=== PATIENT | male | born 1990 | race Caucasian/White ===

== ENCOUNTER 2018-06-07 13:37 | Observation (INO) ==
[2018-06-07] MEDS ORDERED: Aspirin 325 MG Tablet PO ONE (13:41)
[2018-06-07] MEDS ORDERED: Sod Chloride 0.9% Inj 1,000 ML IV.SIG ONE ×2 (13:43→15:35)
--- NOTE | 2018-06-07 14:19 | ED ---
HPI General Chief Complaint: Syncope Stated Complaint: Cardiac Time Seen by Provider: 06/07/18 13:40 Source: patient and family Mode of arrival: wheelchair Limitations: altered mental status History of Present Illness HPI narrative: 27-year-old male the presents to the ED for evaluation of syncope and chest pain. Patient himself is not able to provide much information. Apparently patient was working today out of [employer] and he started staying to his coworkers that he was feeling "funny ". Patient was able to sit down and will he was sitting he started apparently worsening. Per report I was given by family in [employer] supervisor patient started getting more unresponsive and complaining of chest pain and pressure in his chest and then he became more quiet and he would interact with anybody. Patient apparently had a syncopal episode that was witnessed. Lasted less than a couple seconds. Patient not hit his head or lose consciousness. No recent travel. Per mother patient has been under a lot of stress recently at work as well as in home life. Apparently patient had a similar episode about a year and a half ago where his blood pressure went up and he had some similar symptoms. He has not taken anything for this however. He takes no medications. No allergies. No other medical issues. Patient cannot really give me a number for the chest pain and is able to point to where he hurts. He is not able to give much information otherwise. Unclear if any history of smoking or drug use. Related Data Home Medications Medication Instructions Recorded Confirmed dextroamphetamine-amphetamine 20 mg PO BID 06/07/18 06/07/18 [Adderall] Allergies Allergy/AdvReac Type Severity Reaction Status Date / Time No Known Allergies Allergy Verified 06/07/18 13:43 Review of Systems ROS: all other systems reviewed are negative [facility] Medical History Medical History ADHD (Acute) Social History Social History Substance History: No History of Abuse Second Hand Smoke Exposure: No Smoking Status: Never smoker How Often Do You Have a Drink Containing Alcohol: 2 to 4 times a month Recent Travel in [facility] [[email or web address] within the Last 8 Weeks: No Recent Out of Country Travel within the Last 8 Weeks: No Exam Narrative Exam Narrative: GENERAL: Very anxious but well-appearing otherwise. SKIN: Focused skin assessment warm/dry. HEAD: Atraumatic. Normocephalic. EYES: Pupils equal and round 4 mms reactive to light and accommodation.. No scleral icterus. No injection or drainage. ENT: No nasal bleeding or discharge. Mucous membranes pink and moist. Tongue is midline. No uvula deviation. NECK: Trachea midline. No JVD. CARDIOVASCULAR: Regular rate and rhythm. No murmur appreciated. RESPIRATORY: No accessory muscle use. Clear to auscultation. Breath sounds equal bilaterally. GASTROINTESTINAL: Abdomen soft, non-tender, nondistended. Hepatic and splenic margins not palpable. MUSCULOSKELETAL: No obvious deformities. No clubbing. No cyanosis. No edema. Full range of motion of the upper and lower extremities bilaterally. 2+ pulses bilaterally. NEUROLOGICAL: Awake and alert. No obvious cranial nerve deficits. Motor grossly within normal limits. Normal speech. PSYCHIATRIC: Appropriate mood and affect; insight and judgment normal. Course Initial Documented Vital Signs Pulse Rate 88 06/07/18 13:43 Respiratory Rate 22 06/07/18 13:43 Blood Pressure 155/94 H 06/07/18 13:43 Pulse Oximetry 100 06/07/18 13:43 Last Documented Vital Signs Temperature 98.7 F 06/07/18 14:05 Pulse Rate 76 06/07/18 14:05 Respiratory Rate 18 06/07/18 14:05 Blood Pressure 130/76 06/07/18 14:05 Pulse Oximetry 100 06/07/18 14:05 Medical Decision Making [facility] Narrative Medical decision making narrative: 27-year-old male the presents to the ED for evaluation of chest pain and shortness of breath. Patient was properly examined and was found to have signs and symptoms consistent with appears to be possible ACS versus anxiety. Patient cannot really give me much history. Labs and imaging order. Patient was given Ativan, nitroglycerin and aspirin. Patient was reassessed and able to talk now and feels more improved. She has been seems to be going away. Patient apparently is doing a new diet and is taking multiple supplements. He is also been working a lot and been under a lot of stress per family and patient himself. He is [employer] unit apparently stopped working last night and he has been in a hot house for about 24 hours. He also states that he had a light breakfast today. Labs and imaging were ordered. Labs and imaging were essentially unremarkable for acute disease. Patient does have slight hypokalemia and CK elevation. Possibly from the hydration. Patient was given a bolus of fluid and given potassium supplements. Patient overall feeling better. I do suspect that this is more benign but because patient did had a syncopal episode that preceded with chest pain I cannot completely rule out cardiac. I do not believe the patient has ACS but I do believe the patient could have a dysrhythmia that we might not have found as patient is currently taking multiple [id number] supplements to help with weight loss. Case discussed with Dr. Goldsmith who agrees to admission to his service. My attending Dr. Yañez was made aware of findings and agrees with plan. Differential Diagnosis Differential Diagnosis: ACS versus anxiety versus panic attack versus vasovagal episode versus a typical chest pain Medical Records Medical records reviewed: Yes I reviewed the patient's medical records. Lab Data Lab results reviewed: Yes I reviewed the patient's lab results. Lab results narrative: troponin negative CKMB in the 500s Lipase WNL Result diagrams: 06/07/18 13:55 06/07/18 13:55 Lab Results 06/07/18 06/07/18 06/07/18 Range/Units 13:55 13:55 13:55 WBC 8.2 (4.0-11.0) th/mm3 RBC 5.07 (4.50-5.90) mil/mm3 Hgb 15.3 (13.0-17.0) gm/dL Hct 45.3 (39.0-51.0) % MCV 89.4 (80.0-100.0) fL MCH 30.2 (27.0-34.0) pg MCHC 33.8 (32.0-36.0) % RDW 13.2 (11.6-17.2) % Plt Count 224 (150-450) th/mm3 MPV 7.9 (7.0-11.0) fL Neut % (Auto) 57.1 (16.0-70.0) % Lymph % (Auto) 37.0 (9.0-44.0) % [place] % (Auto) 5.1 (0.0-8.0) % Eos % (Auto) 0.3 (0.0-4.0) % Baso % (Auto) 0.5 (0.0-2.0) % Neut # (Auto) 4.7 (1.8-7.7) th/mm3 Lymph # (Auto) 3.0 (1.0-4.8) th/mm3 [place] # (Auto) 0.4 (0.0-0.9) th/mm3 Eos # (Auto) 0.0 (0.0-0.4) th/mm3 Baso # (Auto) 0.0 (0.0-0.2) th/mm3 WBC Differential . Differential Comment Auto diff final PT 10.7 (9.8-11.6) sec INR 1.1 Ratio APTT 24.5 (24.3-30.1) sec D-Dimer Quant (PE/DVT) (0.00-0.50) mg/L FEU Sodium 138 (136-145) meq/L Potassium 3.1 L (3.5-5.1) meq/L Chloride 104 (98-107) meq/L Carbon Dioxide 22.2 (21.0-32.0) meq/L Anion Gap 12 (5-15) meq/L BUN 20 H (7-18) mg/dL Creatinine 1.19 (0.60-1.30) mg/dL Estimated GFR 73 L (>89) mL/min Random Glucose 96 (74-106) mg/dL Calcium 9.2 (8.5-10.1) mg/dL Magnesium 1.9 (1.5-2.5) mg/dL Total Bilirubin 0.5 (0.2-1.0) mg/dL AST 29 (15-37) U/L ALT 43 (12-78) U/L Alkaline Phosphatase 77 (45-117) U/L Total Creatine Kinase 572 H (39-308) U/L CK-MB (CK-2) 3.9 H (0.5-3.6) ng/mL CK-MB (CK-2) % 0.7 (0.0-4.0) % Troponin I Less than 0.02 L (0.02-0.05) ng/mL Total Protein 8.1 (6.4-8.2) g/dL Albumin 4.3 (3.4-5.0) g/dL Lipase 95 (73-393) U/L 06/07/18 Range/Units 13:55 WBC (4.0-11.0) th/mm3 RBC (4.50-5.90) mil/mm3 Hgb (13.0-17.0) gm/dL Hct (39.0-51.0) % MCV (80.0-100.0) fL MCH (27.0-34.0) pg MCHC (32.0-36.0) % RDW (11.6-17.2) % Plt Count (150-450) th/mm3 MPV (7.0-11.0) fL Neut % (Auto) (16.0-70.0) % Lymph % (Auto) (9.0-44.0) % [place] % (Auto) (0.0-8.0) % Eos % (Auto) (0.0-4.0) % Baso % (Auto) (0.0-2.0) % Neut # (Auto) (1.8-7.7) th/mm3 Lymph # (Auto) (1.0-4.8) th/mm3 [place] # (Auto) (0.0-0.9) th/mm3 Eos # (Auto) (0.0-0.4) th/mm3 Baso # (Auto) (0.0-0.2) th/mm3 WBC Differential Differential Comment PT (9.8-11.6) sec INR Ratio APTT (24.3-30.1) sec D-Dimer Quant (PE/DVT) Less than 0.19 (0.00-0.50) mg/L FEU Sodium (136-145) meq/L Potassium (3.5-5.1) meq/L Chloride (98-107) meq/L Carbon Dioxide (21.0-32.0) meq/L Anion Gap (5-15) meq/L BUN (7-18) mg/dL Creatinine (0.60-1.30) mg/dL Estimated GFR (>89) mL/min Random Glucose (74-106) mg/dL Calcium (8.5-10.1) mg/dL Magnesium (1.5-2.5) mg/dL Total Bilirubin (0.2-1.0) mg/dL AST (15-37) U/L ALT (12-78) U/L Alkaline Phosphatase (45-117) U/L Total Creatine Kinase (39-308) U/L CK-MB (CK-2) (0.5-3.6) ng/mL CK-MB (CK-2) % (0.0-4.0) % Troponin I (0.02-0.05) ng/mL Total Protein (6.4-8.2) g/dL Albumin (3.4-5.0) g/dL Lipase (73-393) U/L Imaging Data Attestation: I personally reviewed and interpreted this imaging study as follows : Radiologist's impression: Chest X-Ray 06/07/18 13:41 CONCLUSION: Negative for an acute process Head CT 06/07/18 13:42 CONCLUSION: 1. Negative noncontrast head CT ECG Data Attestation: I personally reviewed and interpreted this ECG as follows: Interpretation: EKG shows sinus rhythm with no sign of acute ischemia or arrhythmia read by me and attending. No ST elevations. Discharge Plan Physicians Team ED Provider: Samia Aldrich ED Midlevel Provider: Stanton Leroy Primary Care Provider: UNKNOWN, Rxs /Orders / Referrals /Forms Prescriptions: No Action dextroamphetamine-amphetamine [Adderall] 20 mg Tablet 20 mg PO BID RF: 0 Discharge Interventions Interventions: Vital Signs Last Done: 06/07/18 14:05 Status ED Status: With Doctor
[2018-06-07 14:24] LABS: Baso % (Auto) 0.5 % (0.0-2.0); Eos % (Auto) 0.3 % (0.0-4.0); Hematocrit 45.3 % (39.0-51.0); Hemoglobin 15.3 gm/dL (13.0-17.0); Mean Corpuscular HGB Conc 33.8 % (32.0-36.0); Mean Corpuscular Hemoglobin 30.2 pg (27.0-34.0); Mean Corpuscular Volume 89.4 fL (80.0-100.0); Mean Platelet Volume 7.9 fL (7.0-11.0); Mono # (Auto) 0.4 th/mm3 (0.0-0.9); Mono % (Auto) 5.1 % (0.0-8.0); Neut # (Auto) 4.7 th/mm3 (1.8-7.7); Neut % (Auto) 57.1 % (16.0-70.0); Platelet Count 224 th/mm3 (150-450); Red Blood Count 5.07 mil/mm3 (4.50-5.90); Red Cell Distribution Width 13.2 % (11.6-17.2); White Blood Count 8.2 th/mm3 (4.0-11.0)
--- NOTE | 2018-06-07 14:30 | XR ---
EXAM DATE: 06/07/2018 2:28 PM EDT AGE/SEX: 27 years / Male INDICATIONS: Chest pain. Patient complains of shortness of breath and tightness in chest. CLINICAL DATA: This is the patient's initial encounter. Patient reports that signs and symptoms have been present for 1 day and indicates a pain score of 10/10. MEDICAL/SURGICAL HISTORY: None. None. COMPARISON: No prior exams available for comparison. FINDINGS: A single AP view of the chest demonstrates the lungs to be symmetrically aerated without evidence of mass, infiltrate or effusion. The cardiomediastinal contours are unremarkable. Osseous structures a re intact. CONCLUSION: Negative for an acute process Electronically signed by: Delonte Zamora MD 06/07/2018 2:29 PM EDT
[2018-06-07 14:38] LABS: Activated Partial Thrombo Time 24.5 sec (24.3-30.1); INR 1.1 Ratio; Prothrombin Time 10.7 sec (9.8-11.6)
[2018-06-07 14:48] LABS: Alanine Aminotransferase 43 U/L (12-78); Albumin 4.3 g/dL (3.4-5.0); Anion Gap 12 meq/L (5-15); Aspartate Aminotransferase 29 U/L (15-37); Blood Urea Nitrogen 20 mg/dL (7-18); Calcium 9.2 mg/dL (8.5-10.1); Carbon Dioxide 22.2 meq/L (21.0-32.0); Chloride 104 meq/L (98-107); Glomerular Filtration Rate 73 mL/min (>89); Glucose,Random 96 mg/dL (74-106); Lipase 95 U/L (73-393); Magnesium 1.9 mg/dL (1.5-2.5); Potassium 3.1 meq/L (3.5-5.1); Sodium 138 meq/L (136-145)
[2018-06-07 14:52] LABS: Alkaline Phosphatase 77 U/L (45-117); Creatine Kinase 572 U/L (39-308); Total Protein 8.1 g/dL (6.4-8.2)
--- NOTE | 2018-06-07 14:59 | CT ---
EXAM DATE: 06/07/2018 2:56 PM EDT AGE/SEX: 27 years / Male INDICATIONS: Syncopal episode today. Chest pain and tightness, general malaise. CLINICAL DATA: This is the patient's initial encounter. Patient reports that signs and symptoms have been present for 1 day and indicates a pain score of 3/10. MEDICAL/SURGICAL HISTORY: None. None. RADIATION DOSE: 46.58 CTDI (mGy) COMPARISON: No prior exams available for comparison. TECHNIQUE: CT of the head without contrast. Using automated exposure control and adjustment of the mA and/or kV according to patient size, radiation dose was kept as low as reasonably achievable to ob tain optimal diagnostic quality images. DICOM format image data is available electronically for revi ew and comparison. FINDINGS: Cerebrum: The ventricles are normal for age. No evidence of midline shift, mass lesion, hemorrhage or acute infarction. No extraaxial fluid collections are seen. Posterior Fossa: The cerebellum and brainstem are intact. The 4th ventricle is midline. The cerebe llopontine angle is unremarkable. Extracranial: The visualized portion of the orbits is intact. Skull: The calvaria is intact. No evidence of skull fracture. CONCLUSION: 1. Negative noncontrast head CT Electronically signed by: Rafita Menendez MD 06/07/2018 2:57 PM EDT
[2018-06-07 15:05] LABS: CKMB Percent 0.7 % (0.0-4.0); Creatine Kinase MB 3.9 ng/mL (0.5-3.6)
--- NOTE | 2018-06-07 15:44 | ECG ---
Date Performed: 06/07/2018 Time Performed: 13:51:18 PTAGE: 27 years EKG: Sinus rhythm WITH SINUS ARRHYTHMIA NORMAL ECG NO PREVIOUS TRACING DOCTOR: Elizabteh Pink Interpretating Date/Time 06/07/2018 15:43:27
--- NOTE | 2018-06-07 17:07 | US ---
EXAM DATE: 06/07/2018 5:02 PM EDT AGE/SEX: 27 years / Male INDICATIONS: Syncope. Also complains of chest pain and tightness. CLINICAL DATA: This is the patient's initial encounter. Patient reports that signs and symptoms have been present for 1 day and indicates a pain score of 0/10. MEDICAL/SURGICAL HISTORY: . Syncope. ADHD. None. COMPARISON: No prior exams available for comparison. VELOCITY PARAMETERS: ICA/CCA Ratio: Right 0.7 , Left 0.9 ICA: Right 62.2 cm/sec, Left 67.7 cm/sec CCA: Right 85.3 cm/sec, Left 78.5 cm/sec ECA: Right 85.3 cm/sec, Left 101.8 cm/sec Vertebral: Right 37.4 cm/sec antegrade, Left 31.8 cm/sec antegrade FINDINGS: Right Carotid: No significant plaque is visualized.The waveforms are within normal limits. Left Carotid: No significant plaque is visualized. The waveforms are within normal limits. Other: None. CONCLUSION: Negative exam with no evidence of stenosis. Electronically signed by: Rafita Menendez MD 06/07/2018 5:06 PM EDT
[2018-06-07 17:17] LABS: Creatine Kinase 452 U/L (39-308)
[2018-06-07] MEDS: Sod Chloride 0.9% Inj 1,000 ML IV.CONT SCH (17:27)
[2018-06-07 17:29] LABS: CKMB Percent 0.7 % (0.0-4.0)
--- NOTE | 2018-06-07 17:47 | P.HP ---
History of Present Illness Primary Care Physician: UNKNOWN Chief Complaint: CHEST PAIN, SYNCOPE History of Present Illness: This is a pleasant 27-year-old white male with no significant past medical history other than ADHD for which he takes Adderall. Presented to the emergency room for syncopal episode and chest pain. According to the patient, he did not sleep very much last night as his air conditioning went out. The last couple nights he has only been able to get maybe 3-4 hours of sleep. This morning he woke up, ate some breakfast and exercised for about 45 minutes. He went to work at his job at the [employer] facility. Sometime around 12 noon, he started feeling "funny". Started to feel a squeezing sensation to the midsternum, he had some difficulty taking a deep breath. There was no radiation , no nausea no vomiting. He felt a little groggy and dazed and was having difficulty focusing on his job duties. 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 He continued to feel poorly but wanted to finish his shift. He started to feel shaky, felt heart was racing and he could not control his hands. He was walking out of the room and trying to use a guerrero when he passed out. His blood pressure was checked at that time it was 137/98. Episode only lasted a few seconds. There was no loss of bowel or bladder, no tongue biting. According to his mother, he had a similar episode last year where his blood pressure became elevated and he had chest discomfort. His mother endorses that he is under a lot of stress as he is raising 3 children as a single father and recently bought a home. Patient denies any illegal drug use. Indicates he has lost intentionally approximately 50 pounds in the last 6 months and takes protein powder and B vitamins and works out daily. Denies any illegal substances. He has been on Adderall for almost a year and sometimes he takes it daily instead of twice daily as it is prescribed. He denies any history of coronary artery disease, no dysrhythmias. No family history of coronary artery disease. Patient was evaluated in the emergency room, laboratory workup was completed. Troponin was negative. CPK was noted slightly elevated at 572. He was noted hypokalemic. EKG did not reveal any acute ST segment elevation. He was given nitro, Ativan and aspirin. At this time, he is resting comfortably. Denies any chest pain. No anxiety. Patient is admitted for further evaluation and treatment. - Diagnosis (1) Syncope (2) Chest pain (3) Rhabdomyolysis (4) Hypokalemia (5) ADHD Review of Systems All other systems reviewed negative except as stated in HPI PMFSH - History History Provided By: Patient, Family Member - Medical History Medical History: Medical History (Last Reviewed 06/07/18 @ 18:04 by GIANNA Dumont) ADHD - Family History Family History: Family History (Last Updated 06/07/18 @ 18:05 by GIANNA Dumont) Grandparent Atrial fibrillation - Tobacco History Second Hand Smoke Exposure: No Smoking Status: Never smoker - Alcohol History How Often Do You Have a Drink Containing Alcohol: 2 to 4 times a month - Substance Use History Substance History: No History of Abuse - Travel History Recent Travel in the [place] Within the Last 8 Weeks: No Recent Travel Out of the Country Within the Last 8 Weeks: No - Immunization History Tetanus Immunization: <5 Years Hx Influenza Vaccine This Season: No Medications and Allergies Active Medications: Active Medications Sodium Chloride (Ns Inj) 1,000 mls @ 100 mls/hr IV.CONT .Q10H RAYMUNDO Last Admin: 06/07/18 17:27 Dose: 100 mls/hr Sodium Chloride (Ns Flush) 2 ml IV.FLUSH UNSCH PRN PRN Reason: FLUSH AFTER USING IV ACCESS Allergies Allergy/AdvReac Type Severity Reaction Status Date / Time No Known Allergies Allergy Verified 06/07/18 13:43 Home Medications Medication Instructions Recorded Confirmed Type dextroamphetamine-amphetamine 20 mg PO BID 06/07/18 06/07/18 History [Adderall] Exam Vital signs: Vital Signs 06/07/18 13:43 06/07/18 13:46 06/07/18 14:05 Temperature 98.7 F Pulse Rate 88 76 Respiratory Rate 22 18 Blood Pressure 155/94 H 130/76 Pulse Oximetry 100 100 100 06/07/18 17:28 Temperature Pulse Rate 69 Respiratory Rate 19 Blood Pressure 142/81 H Pulse Oximetry 100 Intake & Output 06/06/18 06/07/18 06/07/18 18:59 06:59 18:59 Weight 79.379 kg Narrative: GENERAL: Well-nourished, well-developed patient in no apparent distress. SKIN: Warm and dry. HEAD: Atraumatic. Normocephalic. EYES: Pupils equal and round. No scleral icterus. No injection or drainage. ENT: No nasal bleeding or discharge. Mucous membranes pink and moist. NECK: Trachea midline. No JVD. CARDIOVASCULAR: Regular rate and rhythm. RESPIRATORY: No accessory muscle use. Clear to auscultation. Breath sounds equal bilaterally. GASTROINTESTINAL: Abdomen soft, non-tender, nondistended. Hepatic and splenic margins not palpable. MUSCULOSKELETAL: Extremities without clubbing, cyanosis, or edema. No obvious deformities. NEUROLOGICAL: Awake and alert. No obvious cranial nerve deficits. Motor grossly within normal limits. Five out of 5 muscle strength in the arms and legs. Normal speech. PSYCHIATRIC: Appropriate mood and affect; insight and judgment normal. Results - Labs CBC & Chem 7: 06/07/18 13:55 06/07/18 13:55 Labs: Laboratory Results - last 24 hr 06/07/18 06/07/18 06/07/18 13:55 13:55 13:55 WBC 8.2 RBC 5.07 Hgb 15.3 Hct 45.3 MCV 89.4 MCH 30.2 MCHC 33.8 RDW 13.2 Plt Count 224 MPV 7.9 Neut % (Auto) 57.1 Lymph % (Auto) 37.0 [place] % (Auto) 5.1 Eos % (Auto) 0.3 Baso % (Auto) 0.5 Neut # (Auto) 4.7 Lymph # (Auto) 3.0 [place] # (Auto) 0.4 Eos # (Auto) 0.0 Baso # (Auto) 0.0 WBC Differential . Differential Comment Auto diff final PT 10.7 INR 1.1 APTT 24.5 D-Dimer Quant (PE/DVT) Sodium 138 Potassium 3.1 L Chloride 104 Carbon Dioxide 22.2 Anion Gap 12 BUN 20 H Creatinine 1.19 Estimated GFR 73 L Random Glucose 96 Calcium 9.2 Magnesium 1.9 Total Bilirubin 0.5 AST 29 ALT 43 Alkaline Phosphatase 77 Total Creatine Kinase 572 H CK-MB (CK-2) 3.9 H CK-MB (CK-2) % 0.7 Troponin I Less than 0.02 L Total Protein 8.1 Albumin 4.3 Lipase 95 06/07/18 06/07/18 13:55 16:36 WBC RBC Hgb Hct MCV MCH MCHC RDW Plt Count MPV Neut % (Auto) Lymph % (Auto) [place] % (Auto) Eos % (Auto) Baso % (Auto) Neut # (Auto) Lymph # (Auto) [place] # (Auto) Eos # (Auto) Baso # (Auto) WBC Differential Differential Comment PT INR APTT D-Dimer Quant (PE/DVT) Less than 0.19 Sodium Potassium Chloride Carbon Dioxide Anion Gap BUN Creatinine Estimated GFR Random Glucose Calcium Magnesium Total Bilirubin AST ALT Alkaline Phosphatase Total Creatine Kinase 452 H CK-MB (CK-2) 3.0 CK-MB (CK-2) % 0.7 Troponin I Less than 0.02 L Total Protein Albumin Lipase - Imaging Impressions Carotid Doppler Study 06/07/18 00:00 CONCLUSION: Negative exam with no evidence of stenosis. Chest X-Ray 06/07/18 13:41 CONCLUSION: Negative for an acute process Head CT 06/07/18 13:42 CONCLUSION: 1. Negative noncontrast head CT Caprini VTE Risk Assessment Caprini VTE Risk Assessment: No/Low Risk (score <= 1) Caprini Risk Assessment Model: Point Value = 1 Point Value = 2 Point Value = 3 Point Value = 5 Age 41-60 Minor surgery BMI > 25 kg/m2 Swollen legs Varicose veins or History of unexplained or recurrent spontaneous Oral contraceptives or hormone replacement Sepsis (< 1 month) Serious lung disease, including pneumonia (< 1 month) Abnormal pulmonary function Acute myocardial infarction Congestive heart failure (< 1 month) History of inflammatory bowel disease Medical patient at bed rest Age 61-74 Arthroscopic surgery Major open surgery (> 45 min) Laparoscopic surgery (> 45 min) Malignancy Confined to bed (> 72 hours) Immobilizing plaster cast Central venous access Age >= 75 History of VTE Family history of VTE Factor V Leiden Prothrombin [id number] Lupus anticoagulant Anticardiolipin antibodies Elevated serum homocysteine Heparin-induced thrombocytopenia Other congenital or acquired thrombophilia Stroke (< 1 month) Elective arthroplasty Hip, pelvis, or leg fracture Acute spinal cord injury (< 1 month) Prophylaxis Regimen: Total Risk Factor Score Risk Level Prophylaxis Regimen 0-1 Low Early ambulation 2 Moderate Order ONE of the following: *Sequential Compression Device (SCD) *Heparin 5000 units SQ BID 3-4 Higher Order ONE of the following medications: *Heparin 5000 units SQ TID *Enoxaparin/Lovenox 40 mg SQ daily (WT < 150 kg, CrCl > 30 mL/min) *Enoxaparin/Lovenox 30 mg SQ daily (WT < 150 kg, CrCl > 10-29 mL/min) *Enoxaparin/Lovenox 30 mg SQ BID (WT < 150 kg, CrCl > 30 mL/min) AND/OR *Sequential Compression Device (SCD) 5 or more Highest Order ONE of the following medications: *Heparin 5000 units SQ TID (Preferred with Epidurals) *Enoxaparin/Lovenox 40 mg SQ daily (WT < 150 kg, CrCl > 30 mL/min) *Enoxaparin/Lovenox 30 mg SQ daily (WT < 150 kg, CrCl > 10-29 mL/min) *Enoxaparin/Lovenox 30 mg SQ BID (WT < 150 kg, CrCl > 30 mL/min) AND *Sequential Compression Device (SCD) Assessment and Plan - Assessment (1) Syncope Code(s): R55 - Syncope and collapse Status: Acute (2) Chest pain Code(s): R07.9 - Chest pain, unspecified Status: Acute (3) Rhabdomyolysis Code(s): M62.82 - Rhabdomyolysis Status: Acute (4) Hypokalemia Code(s): E87.6 - Hypokalemia Status: Acute (5) ADHD Code(s): F90.9 - Attention-deficit hyperactivity disorder, unspecified type Status: Chronic - Plan 27-year-old presented to the emergency room after having a witnessed syncopal episode, reported chest pain, heart racing. Initial workup done in the emergency room negative for ACS. CPK noted elevated. No history of coronary artery disease Chest pain, atypical possibly secondary to anxiety -We will check another set of troponin -Continue with aspirin 325 mg p.o. daily Syncopal episode -We will check 2D echo and carotid ultrasound -Neurochecks every 4 -Continuous cardiac telemetry monitoring Mild rhabdomyolysis-Had been recently working out, possibly dehydrated and overheated as his AC stopped working. -Normal saline at 100 hour -Monitor renal function -Repeat BMP and CPK in the morning Hypokalemia -Replace potassium -BMP in the morning History of ADHD -We will hold Adderall at this time Home medications reviewed, initiated as indicated Plan of care discussed with patient and mother, and RN. Further management of the patient will be dependent on the hospital course (3) Rhabdomyolysis Qualifiers: Rhabdomyolysis type: non-traumatic Qualified Code(s): M62.82 - Rhabdomyolysis (5) ADHD Qualifiers: Attention deficit-hyperactivity disorder type: unspecified Qualified Code(s) : F90.9 - Attention-deficit hyperactivity disorder, unspecified type
[2018-06-07] MEDS ORDERED: Acetaminophen 325 MG Tablet PO PRN (18:27)
[2018-06-07 20:47] VITALS: RESP 16
[2018-06-07 23:42] LABS: Creatine Kinase 414 U/L (39-308)
[2018-06-07 23:55] LABS: CKMB Percent 0.7 % (0.0-4.0)
[2018-06-08] MEDS: Sod Chloride 0.9% Inj 1,000 ML IV.CONT SCH (06:11)
[2018-06-08 08:05] LABS: Baso % (Auto) 0.8 % (0.0-2.0); Eos # (Auto) 0.1 th/mm3 (0.0-0.4); Hematocrit 41.9 % (39.0-51.0); Hemoglobin 14.2 gm/dL (13.0-17.0); Lymph # (Auto) 1.7 th/mm3 (1.0-4.8); Lymph % (Auto) 35.5 % (9.0-44.0); Mean Corpuscular HGB Conc 33.9 % (32.0-36.0); Mean Corpuscular Hemoglobin 30.6 pg (27.0-34.0); Mean Corpuscular Volume 90.3 fL (80.0-100.0); Mean Platelet Volume 8.5 fL (7.0-11.0); Mono # (Auto) 0.4 th/mm3 (0.0-0.9); Mono % (Auto) 7.4 % (0.0-8.0); Neut # (Auto) 2.6 th/mm3 (1.8-7.7); Neut % (Auto) 54.3 % (16.0-70.0); Platelet Count 175 th/mm3 (150-450); Red Blood Count 4.64 mil/mm3 (4.50-5.90); Red Cell Distribution Width 13.2 % (11.6-17.2); White Blood Count 4.8 th/mm3 (4.0-11.0)
[2018-06-08 08:49] LABS: CKMB Percent 0.8 % (0.0-4.0); Creatine Kinase MB 2.5 ng/mL (0.5-3.6)
[2018-06-08] MEDS ORDERED: Aspirin 325 MG Tablet PO SCH (09:00)
--- NOTE | 2018-06-08 11:21 | P.PN ---
Subjective Interval history: No dizziness, no chest pain, no headache, no anxiety,slept very well anxious to go home Two-point review of systems completed, negative except as noted above Physical Exam Vital signs: Vital Signs 06/07/18 13:43 06/07/18 13:46 06/07/18 14:05 Temperature 98.7 F Pulse Rate 88 76 Respiratory Rate 22 18 Blood Pressure 155/94 H 130/76 Pulse Oximetry 100 100 100 06/07/18 17:28 06/07/18 20:00 06/07/18 23:07 Temperature 98.3 F 98.2 F Pulse Rate 69 64 75 Respiratory Rate 19 16 16 Blood Pressure 142/81 H 124/80 113/74 Pulse Oximetry 100 99 98 06/08/18 04:00 06/08/18 06:30 06/08/18 08:00 Temperature 98.4 F 97.4 F L Pulse Rate 71 51 L Respiratory Rate 16 Blood Pressure 116/71 134/64 Pulse Oximetry 98 98 Intake & Output 06/07/18 06/08/18 06/08/18 18:59 06:59 18:59 Intake Total 5500 / 5500 Output Total 1400 / 1400 Balance 4100 / 4100 Weight 79.379 kg Intake: IV 3000 / 3000 NS Inj 1,000 ML @ 100 mls/hr IV 1000 / 1000 .CONT .Q10H RAYMUNDO Rx#:[id number] NS Inj 1,000 ML @ Wide Open IV. 1999 / 1999 SIG BOLUS ONE Rx#:[id number] Oral 2500 / 2500 Output: Urine 1400 / 1400 Narrative: GENERAL: Well-nourished, well-developed patient in no apparent distress. SKIN: Warm and dry. HEAD: Atraumatic. Normocephalic. EYES: Pupils equal and round. No scleral icterus. No injection or drainage. ENT: No nasal bleeding or discharge. Mucous membranes pink and moist. NECK: Trachea midline. No JVD. CARDIOVASCULAR: Regular rate and rhythm. RESPIRATORY: No accessory muscle use. Clear to auscultation. Breath sounds equal bilaterally. GASTROINTESTINAL: Abdomen soft, non-tender, nondistended. Hepatic and splenic margins not palpable. MUSCULOSKELETAL: Extremities without clubbing, cyanosis, or edema. No obvious deformities. NEUROLOGICAL: Awake and alert. No obvious cranial nerve deficits. Motor grossly within normal limits. Five out of 5 muscle strength in the arms and legs. Normal speech. PSYCHIATRIC: Appropriate mood and affect; insight and judgment normal. Results - Labs CBC & Chem 7: 06/08/18 06:10 06/07/18 13:55 Laboratory Results - last 24 hr 06/07/18 06/07/18 06/07/18 13:55 13:55 13:55 WBC 8.2 RBC 5.07 Hgb 15.3 Hct 45.3 MCV 89.4 MCH 30.2 MCHC 33.8 RDW 13.2 Plt Count 224 MPV 7.9 Neut % (Auto) 57.1 Lymph % (Auto) 37.0 Blaine % (Auto) 5.1 Eos % (Auto) 0.3 Baso % (Auto) 0.5 Neut # (Auto) 4.7 Lymph # (Auto) 3.0 Blaine # (Auto) 0.4 Eos # (Auto) 0.0 Baso # (Auto) 0.0 WBC Differential . Differential Comment Auto diff final PT 10.7 INR 1.1 APTT 24.5 D-Dimer Quant (PE/DVT) Sodium 138 Potassium 3.1 L Chloride 104 Carbon Dioxide 22.2 Anion Gap 12 BUN 20 H Creatinine 1.19 Estimated GFR 73 L Random Glucose 96 Calcium 9.2 Magnesium 1.9 Total Bilirubin 0.5 AST 29 ALT 43 Alkaline Phosphatase 77 Total Creatine Kinase 572 H CK-MB (CK-2) 3.9 H CK-MB (CK-2) % 0.7 Troponin I Less than 0.02 L Total Protein 8.1 Albumin 4.3 Lipase 95 06/07/18 06/07/18 06/07/18 13:55 16:36 23:05 WBC RBC Hgb Hct MCV MCH MCHC RDW Plt Count MPV Neut % (Auto) Lymph % (Auto) Blaine % (Auto) Eos % (Auto) Baso % (Auto) Neut # (Auto) Lymph # (Auto) Blaine # (Auto) Eos # (Auto) Baso # (Auto) WBC Differential Differential Comment PT INR APTT D-Dimer Quant (PE/DVT) Less than 0.19 Sodium Potassium Chloride Carbon Dioxide Anion Gap BUN Creatinine Estimated GFR Random Glucose Calcium Magnesium Total Bilirubin AST ALT Alkaline Phosphatase Total Creatine Kinase 452 H 414 H CK-MB (CK-2) 3.0 3.0 CK-MB (CK-2) % 0.7 0.7 Troponin I Less than 0.02 L Less than 0.02 L Total Protein Albumin Lipase 06/08/18 06/08/18 06:10 06:10 WBC 4.8 RBC 4.64 Hgb 14.2 Hct 41.9 MCV 90.3 MCH 30.6 MCHC 33.9 RDW 13.2 Plt Count 175 MPV 8.5 Neut % (Auto) 54.3 Lymph % (Auto) 35.5 Blaine % (Auto) 7.4 Eos % (Auto) 2.0 Baso % (Auto) 0.8 Neut # (Auto) 2.6 Lymph # (Auto) 1.7 Blaine # (Auto) 0.4 Eos # (Auto) 0.1 Baso # (Auto) 0.0 WBC Differential . Differential Comment Auto diff final PT INR APTT D-Dimer Quant (PE/DVT) Sodium Potassium Chloride Carbon Dioxide Anion Gap BUN Creatinine Estimated GFR Random Glucose Calcium Magnesium Total Bilirubin AST ALT Alkaline Phosphatase Total Creatine Kinase 315 H CK-MB (CK-2) 2.5 CK-MB (CK-2) % 0.8 Troponin I Total Protein Albumin Lipase - Imaging Impressions Carotid Doppler Study 06/07/18 00:00 CONCLUSION: Negative exam with no evidence of stenosis. Chest X-Ray 06/07/18 13:41 CONCLUSION: Negative for an acute process Head CT 06/07/18 13:42 CONCLUSION: 1. Negative noncontrast head CT Assessment and Plan - Assessment (1) Syncope Code(s): R55 - Syncope and collapse Status: Acute (2) Chest pain Code(s): R07.9 - Chest pain, unspecified Status: Acute (3) Rhabdomyolysis Code(s): M62.82 - Rhabdomyolysis Status: Acute (4) Hypokalemia Code(s): E87.6 - Hypokalemia Status: Acute (5) ADHD Code(s): F90.9 - Attention-deficit hyperactivity disorder, unspecified type Status: Chronic - Plan 27-year-old presented to the emergency room after having a witnessed syncopal episode, reported chest pain, heart racing. Initial workup done in the emergency room negative for ACS. CPK noted elevated. No history of coronary artery disease Chest pain, atypical possibly secondary to anxiety. Serial troponin negative. -on aspirin 325 mg p.o. daily Syncopal episode, poss sec. panic attach. No evidence of ACS -carotid US normal -echo done, pending -Neurochecks every 4 -Continuous cardiac telemetry monitoring Mild rhabdomyolysis-Had been recently working out, possibly dehydrated and overheated as his AC stopped working. -Normal saline at 100 hour -renal function stable -CPK trending down 315 Hypokalemia -Replace potassium -BMP in the morning History of ADHD -ok to resume Adderall at home, recommend to keep hydrated. Poss dc after echo report d/w pt and mother needs to f/u PCP 1-2 days Inc. water intake and exercise in moderation continue heart healthy diet activity as tolerated may return to work tomorrow (3) Rhabdomyolysis Qualifiers: Rhabdomyolysis type: non-traumatic Qualified Code(s): M62.82 - Rhabdomyolysis (5) ADHD Qualifiers: Attention deficit-hyperactivity disorder type: unspecified Qualified Code(s) : F90.9 - Attention-deficit hyperactivity disorder, unspecified type
[2018-06-08 12:14] VITALS: BP 128/78; PULSE 61; TEMP 98; O2SAT 99
--- NOTE | 2018-06-08 12:48 | ECHRPT ---
Indication: CHEST PAIN CONCLUSIONS Normal left ventricular size. Wall thickness is normal. The left ventricular systolic function is low normal with an estimated ejection fraction in the rang e of 50- 55%. Mild mitral valve regurgitation. There is mild tricuspid valve regurgitation. The estimated pulmonary arterial pressure is 39.2 mmHg. BP: / HR: Rhythm: Sinus MEASUREMENTS (Male / Female) Normal Values Technical Quality:Fair 2D ECHO LV Diastolic Diameter PLAX 4.8 cm 4.2 - 5.9 / 3.9 - 5.3 cm LV Systolic Diameter PLAX 3.7 cm IVS Diastolic Thickness 1.0 cm 0.6 - 1.0 / 0.6 - 0.9 cm LVPW Diastolic Thickness 1.0 cm 0.6 - 1.0 / 0.6 - 0.9 cm LV Relative Wall Thickness 0.4 RV Internal Dim ED PLAX 2.4 cm LVOT Diameter 2.2 cm Aortic Root Diameter 2.8 cm LA Systolic Diameter LX 3.7 cm 3.0 - 4.0 / 2.7 - 3.8 cm M-MODE AV Cusp Separation MM 2.1 cm DOPPLER AV Peak Velocity 113.0 cm/s AV Peak Gradient 5.1 mmHg AV Mean Gradient 3.0 mmHg AV Velocity Time Integral 25.1 cm LVOT Peak Velocity 61.7 cm/s LVOT Peak Gradient 1.5 mmHg LVOT Velocity Time Integral 13.9 cm AV Area Cont Eq vti 2.1 cm AV Area Cont Eq pk 2.1 cm Mitral E Point Velocity 90.8 cm/s Mitral A Point Velocity 33.1 cm/s Mitral E to A Ratio 2.7 LV E' Lateral Velocity 15.5 cm/s Mitral E to LV E' Lateral Ratio 5.9 LV E' Septal Velocity 11.4 cm/s Mitral E to LV E' Septal Ratio 8.0 TR Peak Velocity 270.0 cm/s TR Peak Gradient 29.2 mmHg Right Atrial Pressure 10.0 mmHg Pulmonary Artery Systolic Pressu 39.2 mmHg Right Ventricular Systolic Press 39.2 mmHg PV Peak Velocity 52.6 cm/s PV Peak Gradient 1.1 mmHg FINDINGS LEFT VENTRICLE Normal left ventricular size. Wall thickness is normal. The left ventricular systolic function is low normal with an estimated ejection fraction in the rang e of 50- 55%. RIGHT VENTRICLE Normal right ventricular size and systolic function. LEFT ATRIUM The left atrial size is normal. RIGHT ATRIUM The right atrial size is normal. ATRIAL SEPTUM No atrial level shunt is demonstrated by color flow Doppler interrogation. AORTA The aortic root and proximal ascending aorta are not well visualized. MITRAL VALVE Mild mitral valve regurgitation. AORTIC VALVE Trileaflet aortic valve. No aortic valve stenosis or regurgitation. TRICUSPID VALVE There is mild tricuspid valve regurgitation. The estimated pulmonary arterial pressure is 39.2 mmHg. PULMONARY VALVE No pulmonary valve regurgitation or stenosis. VESSELS The inferior vena cava is normal in size. PERICARDIUM No pericardial effusion. Conor Lees MD (Electronically Signed) Final Date:08 June 2018 12:47
--- NOTE | 2018-06-08 22:07 | ECG ---
Date Performed: 06/07/2018 Time Performed: 23:09:32 PTAGE: 27 years EKG: SINUS BRADYCARDIA BORDERLINE ECG PREVIOUS TRACING : 06/07/2018 13.51 Compared to previous tracing, rate slower DOCTOR: Elizabeth Pink Interpretating Date/Time 06/08/2018 22:06:57
== END 2018-06-08 13:52 | disposition home or self-care (01) ==
LOC: NEDA 13:37 → NEPE 13:37 → NEPGCP 13:37
PROVIDERS: ADMIT Hospitalist; ATTEND Hospitalist